=== PATIENT | male | born 1975 | race Caucasian/White ===

== ENCOUNTER → 2016-11-03 | Outpatient (CLI) | payer MEDICAID, OTHER ==
[~2016-11-03] MED LIST: NORC10TA2 PO
--- NOTE | 2016-11-03 18:34 | RADRPT ---
EXAM DATE/TIME: 11/03/2016 16:33 [place] COMPARISON: No previous studies available for comparison. INDICATIONS : Rotator cuff tear. Right shoulder pain. MEDICAL HISTORY : None. SURGICAL HISTORY : Right forearm surgery. ENCOUNTER: Initial ACUITY: 2 weeks PAIN SCORE: 3/10 LOCATION: Right shoulder. TECHNIQUE: Multiplanar, multisequence MRI examination was performed without contrast. FINDINGS: ROTATOR CUFF: There is increased signal seen within the distal supraspinatus tendon. This extends through the substance of the tendon and appears to extend to the articular surface. There may be a s mall component of this that is a full thickness tear seen at the posterior distal aspect of the supra spinatus tendon. The remaining rotator cuff appears intact. LABRUM: Labrum is within normal limits. MARROW/CARTILAGE: Bone marrow signal is homogeneous. Glenohumeral joint articular cartilage is w ithin normal limits. OTHER: There is minimal hypertrophic change at the acromioclavicular joint. The proximal biceps tendon is intact. CONCLUSION: Supraspinatus tendon tear. This is definitely at least a partial tear extending to t he articular surface and into the inner substance. There is a small component that may extend throug h the full thickness of the supraspinatus tendon posteriorly. Zack Hood MD on November 03, 2016 at 18:23 Board Certified Radiologist. This report was verified electronically.
== END ==
LOC: HRAD 16:00
PROVIDERS: ATTEND Orthopaedic Surgery Orthopaedic Surgery of the Spine
DX: M75.121 Complete rotator cuff tear or rupture of right shoulder, not specified as traumatic (principal)
CPT/HCPCS: 73221